=== PATIENT | male | born 1965 | race Caucasian/White ===

== ENCOUNTER 2020-07-02 09:16 | Emergency (ER) | payer OTHER ==
[2020-07-02] MEDS ORDERED: Sodium Chloride 0.9% 2.5 ML Syringe FLUSH PRN (09:19)
[2020-07-02] MEDS ORDERED: Sodium Chloride 0.9% 10 ML Syringe FLUSH PRN (09:19)
--- NOTE | 2020-07-02 09:21 | EDM.PDOC ---
ED HPI GENERAL MEDICAL PROBLEM - General Stated Complaint: CHEST PAIN Time Seen by Provider: 07/02/20 09:18 Source of Information: Reports: Patient, Old Records History Limitations: Reports: No Limitations - History of Present Illness INITIAL COMMENTS - FREE TEXT/NARRATIVE: This is a very pleasant 55-year-old man with a past medical history of coronary artery disease status post stenting, hypertension, hyperlipidemia, bipolar disorder presenting with chest pain. 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 No physical exertion before the onset. Describes left-sided chest pressure, nonradiating, nothing makes it better or worse. No history of prior pain like this. Pain has been constant. He took 2 doses of sublingual nitroglycerin and 81 mg of aspirin prior to arrival, pain decreased from 8 out of 10 to 1 out of 10. He does complain of some lingering mild chest discomfort at this time. He denies any shortness of breath. Does report nausea but no emesis, denies diaphoresis, denies any exertional chest discomfort. Denies fever, chills, cough, hemoptysis, leg swelling, history of venous thromboembolism, recent surgery or immobilization or long travel. Denies vomiting, diarrhea, or any other complaints. ROS: A 10-point review of systems was negative, except as noted in the HPI (or in the ROS section of this note). Past medical history: Reviewed, no additional pertinent history. Surgical history: Reviewed in system, no additional pertinent history. Social history: Reviewed in system, no additional pertinent history. Family history: Reviewed in system, no additional pertinent history. PHYSICAL EXAM Vital signs reviewed. Nursing notes reviewed. Constitutional: Awake, alert, non-distressed. Head: Normocephalic, atraumatic. Eyes: EOMI, conjunctiva normal, no discharge, no scleral icterus. Ears, Nose, Throat: External ears and nose normal, moist oral mucosa. Cardiovascular: 2+ radial pulses bilaterally, capillary refill less than 2 seconds. No lower extremity edema. Pulmonary: normal work of breathing, no accessory muscle use. Abdomen/GI: Soft, nontender, nondistended, no guarding or rigidity, no masses. Musculoskeletal: No deformities. Integumentary: Appropriate color for ethnicity, warm, dry, no pallor or jaundice, no rash. Neurologic: Alert, answering questions appropriately, normal speech, no facial droop, moving all extremities well. Psychiatric: Appropriate mood and affect, normal thought process. This patient was seen and evaluated during the 2019 SARS-CoV-2 novel coronavirus pandemic period. Community viral transmission is ongoing at time of this encounter and the emergency department is operating under pandemic response procedures. Chest Pain Score (Numeric/FACES): 2 - Related Data Allergies Allergy/AdvReac Type Severity Reaction Status Date / Time animal dander Allergy Sneezing Verified 07/02/20 09:31 Home Meds: Home Meds QUEtiapine [SEROquel] 50 mg PO DAILY 07/02/20 [History] Rosuvastatin [Crestor] 20 mg PO DAILY 07/02/20 [History] Telmisartan 40 mg PO DAILY 07/02/20 [History] Vortioxetine Hydrobromide [Trintellix] 20 mg PO DAILY 07/02/20 [History] amLODIPine [Norvasc] 5 mg PO DAILY 07/02/20 [History] lamoTRIgine 200 mg PO BID 07/02/20 [History] Past Medical History Psychiatric History: Reports: Bipolar, Depression - Past Surgical History Other Musculoskeletal Surgeries/Procedures:: hx bone spur removed from ankle Social & Family History - Family History Family Medical History: No Pertinent Family History ED ROS GENERAL - Review of Systems Review Of Systems: See Below ED EXAM, GENERAL - Physical Exam Exam: See Below #1 Interpretation EKG Interpretation Comments: 12-Lead ECG Interpretation Acquired: 9:21 AM Rhythm: Sinus bradycardia Rate: 55 bpm [place]: Normal Intervals: First-degree AV block Ectopy: None RV Strain: No obvious RV strain pattern. ST Segments/T-Waves: No notable changes Acute Ischemic Changes: None apparent Interpretation: No STEMI Course - Vital Signs Text/Narrative:: 55-year-old man presenting with several hours of left-sided chest pain and nausea. Patient hemodynamically stable, afebrile, well-appearing, looks nontoxic. Differential diagnosis includes but is not limited to: ACS, pulmonary embolism, aortic dissection, acute systolic heart failure, pneumonia, pneumothorax, pericardial effusion, pleural effusion, pericarditis, endocarditis, esophageal rupture, GERD, drug-induced chest pain, chest wall pain, and many others. 10:14 AM: Ordered full dose aspirin, labs, chest x-rays. Initial twelve-lead EKG looks nonischemic. We will plan for 3-hour delta troponin and ECG. Patient is resting comfortably at this time. 11:24 AM: Labs show mild normocytic anemia, normal white blood cell count and platelet count. D-dimer is elevated 0.74. Metabolic panel shows creatinine of 1.4 and BUN of 20, glucose 120 with normal carbon dioxide. Troponin is negative. Chest x-rays are clear. We will obtain a CT pulmonary angiogram. 2:35 PM: Troponin is negative x2. CT pulmonary angiogram shows no evidence of pulmonary embolism or abnormality. Chest x-rays are clear as well. Twelve-lead EKGs labs are reassuring. Showed no ischemic pattern or any evolving changes. Patient is low risk with a HEART score of 3. No evidence of pulmonary embolism. No signs of acute systolic heart failure, no pulmonary infiltrate on imaging studies to suggest pneumonia, no sign of pneumothorax or pericardial or pleural effusion. Low suspicion for pericarditis given lack of pain that is not worse when sitting forward, lack of fever, no clinical signs of endocarditis such as splinter hemorrhages or fever or history of IV drug use, no history of recent vomiting to suggest esophageal rupture. Low suspicion for aortic dissection given lack of pain rating to the back and equal radial pulses. At this point the work-up is essentially negative and the patient is stable to discharge home with outpatient cardiology or primary care follow-up in the next week. We discussed strict ED return precautions for worsening chest pain, shortness of breath, or any other new or concerning symptoms. Plan: Patient is stable to discharge home with outpatient primary care clinic follow-up. Strict emergency department return precautions were provided, patient indicated understanding. All questions were answered prior to departure. Discharged in good condition. HEART Score for Major Cardiac Events RESULT SUMMARY: 3 points Low Score (0-3 points) Risk of MACE of 0.9-1.7%. INPUTS: History > 0 = Slightly suspicious EKG > 0 = Normal Age > 1 = 45-64 Risk factors > 2 = ?3 risk factors or history of atherosclerotic disease Initial troponin > 0 = ?normal limit Last Recorded V/S: Last Vital Signs Temp 36.3 C 07/02/20 09:20 Pulse 58 L 07/02/20 12:39 Resp 16 07/02/20 12:39 BP 122/68 07/02/20 12:39 Pulse Ox 96 07/02/20 12:39 - Orders/Labs/Meds Orders: Active Orders 24 hr Category Date Time Status Cardiac Monitoring [RC] . DIRECTED Care 07/02/20 09:19 Active EKG 12 Lead [EKG Documentation Completion] [RC] STAT Care 07/02/20 13:56 Active EKG Documentation Completion [RC] STAT Care 07/02/20 09:19 Active Pulse Oximetry [RC] ASDIRECTED Care 07/02/20 09:19 Active Sodium Chloride 0.9% [Saline Flush] Med 07/02/20 09:19 Active 10 ml FLUSH ASDIRECTED PRN Sodium Chloride 0.9% [Saline Flush] Med 07/02/20 09:19 Active 2.5 ml FLUSH ASDIRECTED PRN Saline Lock Insert [OM.PC] Stat Oth 07/02/20 09:19 Ordered Medication Orders Sodium Chloride (Saline Flush) 10 ml FLUSH ASDIRECTED PRN PRN Reason: Keep Vein Open Last Admin: 07/02/20 10:04 Dose: 10 ml Documented by: GINA Sodium Chloride (Saline Flush) 2.5 ml FLUSH ASDIRECTED PRN PRN Reason: Keep Vein Open Last Admin: 07/02/20 10:04 Dose: 2.5 ml Documented by: GINA Labs: Laboratory Tests 07/02/20 07/02/20 07/02/20 Range/Units 09:25 09:25 09:25 WBC 8.96 (4.0-11.0) K/uL RBC 4.24 L (4.50-5.90) M/uL Hgb 12.6 L (13.0-17.0) g/dL Hct 38.6 (38.0-50.0) % MCV 91.0 (80.0-98.0) fL MCH 29.7 (27.0-32.0) pg MCHC 32.6 (31.0-37.0) g/dL RDW Std Deviation 43.2 (28.0-62.0) fl RDW Coeff of Pro 13 (11.0-15.0) % Plt Count 217 (150-400) K/uL MPV 10.00 (7.40-12.00) fL Neut % (Auto) 64.8 (48.0-80.0) % Lymph % (Auto) 20.1 (16.0-40.0) % Dickinson % (Auto) 10.9 (0.0-15.0) % Eos % (Auto) 3.9 (0.0-7.0) % Baso % (Auto) 0.3 (0.0-1.5) % Neut # (Auto) 5.8 H (1.4-5.7) K/uL Lymph # (Auto) 1.8 (0.6-2.4) K/uL Dickinson # (Auto) 1.0 H (0.0-0.8) K/uL Eos # (Auto) 0.4 (0.0-0.7) K/uL Baso # (Auto) 0.0 (0.0-0.1) K/uL Nucleated RBC % 0.0 /100WBC Nucleated RBCs # 0 K/uL D-Dimer, Quantitative 0.74 H (0.0-0.50) mg/L FEU Sodium 140 (136-148) mmol/L Potassium 3.7 (3.5-5.1) mmol/L Chloride 105 (98-107) mmol/L Carbon Dioxide 23.0 (21.0-32.0) mmol/L BUN 20 H (7.0-18.0) mg/dL Creatinine 1.4 H (0.8-1.3) mg/dL Est Cr Clr Drug Dosing 63.90 mL/min Estimated GFR (MDRD) 52.2 ml/min Glucose 120 H (74-106) mg/dL Calcium 8.6 (8.5-10.1) mg/dL Total Bilirubin 0.2 (0.2-1.0) mg/dL AST 17 (15-37) IU/L ALT 22 (14-63) IU/L Alkaline Phosphatase 101 (46-116) U/L Troponin I < 0.050 (0.000-0.056) ng/mL Total Protein 6.5 (6.4-8.2) g/dL Albumin 3.4 (3.4-5.0) g/dL Globulin 3.1 (2.6-4.0) g/dL Albumin/Globulin Ratio 1.1 (0.9-1.6) 07/02/20 Range/Units 12:34 WBC (4.0-11.0) K/uL RBC (4.50-5.90) M/uL Hgb (13.0-17.0) g/dL Hct (38.0-50.0) % MCV (80.0-98.0) fL MCH (27.0-32.0) pg MCHC (31.0-37.0) g/dL RDW Std Deviation (28.0-62.0) fl RDW Coeff of Pro (11.0-15.0) % Plt Count (150-400) K/uL MPV (7.40-12.00) fL Neut % (Auto) (48.0-80.0) % Lymph % (Auto) (16.0-40.0) % Dickinson % (Auto) (0.0-15.0) % Eos % (Auto) (0.0-7.0) % Baso % (Auto) (0.0-1.5) % Neut # (Auto) (1.4-5.7) K/uL Lymph # (Auto) (0.6-2.4) K/uL Dickinson # (Auto) (0.0-0.8) K/uL Eos # (Auto) (0.0-0.7) K/uL Baso # (Auto) (0.0-0.1) K/uL Nucleated RBC % /100WBC Nucleated RBCs # K/uL D-Dimer, Quantitative (0.0-0.50) mg/L FEU Sodium (136-148) mmol/L Potassium (3.5-5.1) mmol/L Chloride (98-107) mmol/L Carbon Dioxide (21.0-32.0) mmol/L BUN (7.0-18.0) mg/dL Creatinine (0.8-1.3) mg/dL Est Cr Clr Drug Dosing mL/min Estimated GFR (MDRD) ml/min Glucose (74-106) mg/dL Calcium (8.5-10.1) mg/dL Total Bilirubin (0.2-1.0) mg/dL AST (15-37) IU/L ALT (14-63) IU/L Alkaline Phosphatase (46-116) U/L Troponin I < 0.050 (0.000-0.056) ng/mL Total Protein (6.4-8.2) g/dL Albumin (3.4-5.0) g/dL Globulin (2.6-4.0) g/dL Albumin/Globulin Ratio (0.9-1.6) Meds: Medications Generic Name Dose Route Start Last Admin Trade Name Freq PRN Reason Stop Dose Admin Sodium Chloride 10 ml 07/02/20 09:19 07/02/20 10:04 Saline Flush FLUSH 10 ml ASDIRECTED PRN Administration Keep Vein Open Sodium Chloride 2.5 ml 07/02/20 09:19 07/02/20 10:04 Saline Flush FLUSH 2.5 ml ASDIRECTED PRN Administration Keep Vein Open Discontinued Medications Generic Name Dose Route Start Last Admin Trade Name Freq PRN Reason Stop Dose Admin Aspirin 324 mg 07/02/20 10:04 07/02/20 10:10 Aspirin PO 07/02/20 10:05 324 mg ONETIME ONE Administration Lactated Ringer's 1,000 mls @ 999 mls/hr 07/02/20 10:27 07/02/20 11:32 Ringers, Lactated IV 07/02/20 11:27 999 mls/hr .BOLUS ONE Administration Departure - Departure Time of Disposition: 14:38 Disposition: Home, Self-Care 01 Condition: Good Clinical Impression: Atypical chest pain Instructions: Nonspecific Chest Pain, Adult Referrals: Sebastian Li MD [Primary Care Provider] - 1 Week (For follow-up of chest pain.) Additional Instructions: You were seen in the emergency department for chest pain. At this point your blood work, x-rays, CT scan, and ECGs all look reassuring. There is no sign of an active heart attack from what we can tell and also no sign of a blood clot in your lungs, pneumonia, or any other dangerous or life-threatening condition to cause your chest pain. I do want for you to follow-up with your primary doctor in the next week or so for reevaluation and to be sure that you are doing better. In the meantime, continue taking your prescribed medications as directed. Warning signs to come back to the ER include: Worsening chest pain, shortness of breath, or any other new or concerning symptoms. Please return the emergency department immediately if your symptoms worsen or if you feel worse. Thank you for choosing the [facility] emergency department in [place] for your medical needs today. It was a pleasure caring for you. The following information is given to patients seen in the emergency department who are being discharged. This information is to outline your options for follow-up care. We provide all patients seen in our emergency department with a follow-up referral. The need for follow-up, as well as the timing and circumstances, are variable depending upon the specifics of your emergency department visit. If you don't have a primary care physician on staff, we will provide you with a referral. We always advise you to contact your personal physician following an emergency department visit to inform them of the circumstance of the visit and for follow-up with them and/or the need for any referrals to a consulting specialist. The emergency department will also refer you to a specialist when appropriate. This referral assures that you have the opportunity for follow-up care with a specialist. All of these measure are taken in an effort to provide you with optimal care, which includes your follow-up. Under all circumstances we always encourage you to contact your private physician who remains a resource for coordinating your care. When calling for follow-up care, please make the office aware that this follow-up is from your recent emergency room visit. If for any reason you are refused follow-up, please contact the [facility] Emergency Department at and asked to speak to the emergency department charge nurse. If you do not have a primary care physician that is caring for you, you can contact these clinics below to set up an appointment to establish care: [facility] - Primary [facility] [address] [place] [id number] [address] [place] [address] Sepsis Event Note (ED) - Focused Exam Vital Signs: Vital Signs Temp Pulse Resp BP Pulse Ox 07/02/20 12:39 58 L 16 122/68 96 07/02/20 11:21 63 18 113/71 98 07/02/20 10:36 56 L 16 114/67 95 07/02/20 09:20 36.3 C 67 17 112/64 97 - My Orders Last 24 Hours: My Active Orders 07/02/20 09:19 Cardiac Monitoring [RC] . DIRECTED EKG Documentation Completion [RC] STAT Pulse Oximetry [RC] ASDIRECTED Sodium Chloride 0.9% [Saline Flush] 10 ml FLUSH ASDIRECTED PRN Sodium Chloride 0.9% [Saline Flush] 2.5 ml FLUSH ASDIRECTED PRN Saline Lock Insert [OM.PC] Stat 07/02/20 13:56 EKG 12 Lead [EKG Documentation Completion] [RC] STAT - Assessment/Plan Last 24 Hours: My Active Orders 07/02/20 09:19 Cardiac Monitoring [RC] . DIRECTED EKG Documentation Completion [RC] STAT Pulse Oximetry [RC] ASDIRECTED Sodium Chloride 0.9% [Saline Flush] 10 ml FLUSH ASDIRECTED PRN Sodium Chloride 0.9% [Saline Flush] 2.5 ml FLUSH ASDIRECTED PRN Saline Lock Insert [OM.PC] Stat 07/02/20 13:56 EKG 12 Lead [EKG Documentation Completion] [RC] STAT
[2020-07-02] MEDS ORDERED: Aspirin 81 MG Tab.Chew PO ONE (10:04)
--- NOTE | 2020-07-02 10:08 | CR ---
Indication: Chest pain Comparison: Two-view chest January 22, 2016 Technique: PA and Lateral views chest Findings: There is no focal consolidation, effusion, or pneumothorax. The cardiac silhouette is mildly prominent. The bony thorax is grossly intact. Impression: No acute cardiopulmonary abnormality. Dictated by Jw Anderson MD @ Jul 02 2020 10:06AM Signed by Dr. Jw Anderson @ Jul 02 2020 10:06AM
[2020-07-02 10:10] LABS: BLOOD UREA NITROGEN,BUN 20 mg/dL (7.0-18.0); CHLORIDE,CL 105 mmol/L (98-107); GLUCOSE RANDOM 120 mg/dL (74-106); POTASSIUM,K 3.7 mmol/L (3.5-5.1); SODIUM,NA 140 mmol/L (136-148)
[2020-07-02] MEDS ORDERED: Lactated Ringers 1,000 ML IV ONE (10:27)
--- NOTE | 2020-07-02 13:52 | CT ---
Indication: Chest pain Technique: Volumetric multidetector CT images of the chest were obtained after the administration of IV contrast. 70 cc Isovue 370 Comparison: None available. Findings: The thoracic inlet and thyroid gland are unremarkable. The thoracic aorta is nonaneurysmal. There is no central filling defect to suggest pulmonary embolism. There is no mediastinal, hilar or axillary adenopathy. The trachea and bronchi are well aerated without significant bronchiectasis. There is dependent bibasilar atelectasis versus scar without evidence of dense consolidation, effusion, or pneumothorax. There is no evidence of pulmonary mass or suspicious pulmonary nodule. The partially visualized upper abdominal viscera are within normal limits. The thoracic vertebral body heights are grossly maintained with mild multi-level degenerative disc disease. There is mild spondylolisthesis. Impression: No evidence of pulmonary embolism. Mild dependent basilar atelectasis, otherwise no acute cardiopulmonary abnormality is appreciated. Please note that all CT scans at this facility use dose modulation, iterative reconstruction, and/or weight-based dosing when appropriate to reduce radiation dose to as low as reasonably achievable. Dictated by Jw Anderson MD @ Jul 02 2020 1:41PM Signed by Dr. Jw Anderson @ Jul 02 2020 1:51PM
[2020-07-02 15:07] VITALS: BP 115/70; PULSE 56
== END 2020-07-02 15:00 | disposition home or self-care (01) ==
LOC: MW.ED 09:16
DX: R07.89 Other chest pain (principal); I25.10 Atherosclerotic heart disease of native coronary artery without angina pectoris; I10 Essential (primary) hypertension; E78.5 Hyperlipidemia, unspecified; F31.9 Bipolar disorder, unspecified; Z79.899 Other long term (current) drug therapy; Z95.5 Presence of coronary angioplasty implant and graft
CPT/HCPCS: 36415; 71046; 71275; 80053; 84484; 85025; 85379; 93005; 99285; A9270; J7120; 93010

== ENCOUNTER 2021-08-29 22:42 | Emergency (ER) | payer OTHER ==
[2021-08-29] MEDS ORDERED: Nitroglycerin 0.4 MG Tab.SL SL PRN (22:59)
[2021-08-29] MEDS ORDERED: Aspirin 81 MG Tab.Chew PO ONE (22:59)
[2021-08-29 23:37] LABS: BLOOD UREA NITROGEN,BUN 27 mg/dL (7.0-18.0); CARBON DIOXIDE,CO2 23.9 mmol/L (21.0-32.0); CHLORIDE,CL 104 mmol/L (98-107); GLUCOSE RANDOM 110 mg/dL (74-106); POTASSIUM,K 3.6 mmol/L (3.5-5.1); SODIUM,NA 139 mmol/L (136-148)
[2021-08-30 03:00] VITALS: BP 118/70; PULSE 52
== END 2021-08-30 03:04 | disposition home or self-care (01) ==
LOC: MW.ED 22:42
DX: R07.2 Precordial pain (principal); I25.10 Atherosclerotic heart disease of native coronary artery without angina pectoris; E78.00 Pure hypercholesterolemia, unspecified; I10 Essential (primary) hypertension; E66.9 Obesity, unspecified; Z68.35 Body mass index [BMI] 35.0-35.9, adult; Z91.09 Other allergy status, other than to drugs and biological substances; Z79.899 Other long term (current) drug therapy; Z95.5 Presence of coronary angioplasty implant and graft
CPT/HCPCS: 36415; 71045; 80053; 84484; 85025; 93005; 99285; A9270

== ENCOUNTER 2022-01-03 19:54 | Emergency (ER) | payer OTHER ==
[2022-01-03 23:09] VITALS: BP 128/83; PULSE 58
== END 2022-01-03 23:09 | disposition home or self-care (01) ==
LOC: MW.ED 19:54
DX: S90.32XA Contusion of left foot, initial encounter (principal); E78.00 Pure hypercholesterolemia, unspecified; I10 Essential (primary) hypertension; Z95.5 Presence of coronary angioplasty implant and graft; Z91.09 Other allergy status, other than to drugs and biological substances; Z79.899 Other long term (current) drug therapy
CPT/HCPCS: 73620-26-LT; 73620-LT; 99282; 99283-25

== ENCOUNTER 2022-03-22 16:03 | Emergency (ER) | payer OTHER ==
[2022-03-22 19:16] VITALS: BP 132/78; PULSE 78
== END 2022-03-22 18:45 | disposition home or self-care (01) ==
LOC: MW.ED 16:03
DX: U07.1 COVID-19 (principal); I10 Essential (primary) hypertension; E78.00 Pure hypercholesterolemia, unspecified; Z79.899 Other long term (current) drug therapy
CPT/HCPCS: 99282; 99283; U0002

== ENCOUNTER 2022-10-04 01:32 | Emergency (ER) | payer OTHER ==
[2022-10-04] MEDS ORDERED: Acetaminophen 325 MG Tab PO ONE (01:45)
[2022-10-04 02:16] LABS: CARBON DIOXIDE,CO2 25.7 mmol/L (21.0-32.0); POTASSIUM,K 3.2 mmol/L (3.5-5.1)
[2022-10-04 04:19] VITALS: BP 107/64; PULSE 68
== END 2022-10-04 04:25 | disposition home or self-care (01) ==
LOC: MW.ED 01:32
DX: R07.89 Other chest pain (principal); I10 Essential (primary) hypertension; Z91.09 Other allergy status, other than to drugs and biological substances
CPT/HCPCS: 36415; 71045; 80048; 84484; 85025; 93005; 99285; A9270

== ENCOUNTER 2023-12-16 | Emergency (ER) | payer OTHER ==
[2023-12-16 00:27] LABS: BASOPHILS ABSOLUTE AUTO 0.02 K/uL (0.00-0.20); BASOPHILS PERCENT AUTO 0.2 % (0.0-1.0); EOSINOPHILS ABSOLUTE AUTO 0.01 K/uL (0.00-0.45); EOSINOPHILS PERCENT AUTO 0.1 % (0.0-6.0); HEMATOCRIT 40.5 % (42.0-52.0); HEMOGLOBIN 14.2 g/dL (14.0-18.0); IMMATURE GRAN ABSOLUTE AUTO 0.04 K/uL (0.00-0.05); IMMATURE GRAN PERCENT AUTO 0.4 % (0.0-0.4); LYMPHOCYTES ABSOLUTE AUTO 0.89 K/uL (1.00-4.80); LYMPHOCYTES PERCENT AUTO 9.5 % (24.0-44.0); MEAN CORPUSCULAR HEMOGLOBIN 31.2 pg (28.0-32.0); MEAN CORPUSCULAR HGB CONC 35.1 g/dL (32.0-36.0); MEAN PLATELET VOLUME 9.9 fL (9.4-12.4); MONOCYTES ABSOLUTE AUTO 0.47 K/uL (0.00-0.80); NEUTROPHILS ABSOLUTE AUTO 7.89 K/uL (1.80-7.70); NEUTROPHILS PERCENT AUTO 84.8 % (41.0-71.0); PLATELET COUNT,PLT 231 K/uL (150-400); RED BLOOD CELL COUNT 4.55 M/uL (4.52-5.90); WHITE BLOOD CELL COUNT,WBC 9.32 K/uL (3.9-11.3)
[2023-12-16] MEDS: Ondansetron 4 MG/2 ML SDV IVPUSH ONE (00:44)
[2023-12-16] MEDS: Lactated Ringers 1,000 ML IV ONE (00:44)
[2023-12-16] MEDS: Acetaminophen 500 MG Tab PO ONE (00:44)
[2023-12-16] MEDS: Sodium Chloride 0.9% 10 ML Syringe FLUSH PRN (00:44)
[2023-12-16] MEDS: Sodium Chloride 0.9% 2.5 ML Syringe FLUSH PRN (00:45)
[2023-12-16 00:47] LABS: A/G RATIO 0.9 (0.9-1.6); ALBUMIN 3.6 g/dL (3.4-5.0); BILIRUBIN TOTAL 0.5 mg/dL (0.2-1.0); CALCIUM 8.8 mg/dL (8.5-10.1); CARBON DIOXIDE,CO2 24.5 mmol/L (21.0-32.0); CREATININE 1.4 mg/dL (0.8-1.3); EST CRCL DRUG DOSING (CG) 65.24 mL/min; MAGNESIUM 1.9 mg/dL (1.8-2.4); POTASSIUM,K 4.2 mmol/L (3.5-5.1); PROTEIN TOTAL,TP 7.6 g/dL (6.4-8.2); TSH ULTRASENSITIVE 0.45 uIU/mL (0.36-3.74)
[2023-12-16 03:31] VITALS: BP 114/62; PULSE 68
== END 2023-12-16 03:33 | disposition home or self-care (01) ==
LOC: MW.ED
DX: R00.0 Tachycardia, unspecified (principal); R00.2 Palpitations; I10 Essential (primary) hypertension; E78.00 Pure hypercholesterolemia, unspecified; Z91.048 Other nonmedicinal substance allergy status; Z79.899 Other long term (current) drug therapy
CPT/HCPCS: 36415; 80053; 83735; 83880; 84443; 84484; 85025; 85379; 93005; 96374; 99285; J2405; J3490; J7120; 93010; 99284

== ENCOUNTER 2024-07-28 10:02 | Emergency (ER) | payer OTHER ==
[2024-07-28] MEDS ORDERED: Sodium Chloride 0.9% 10 ML Syringe FLUSH PRN (10:18)
[2024-07-28] MEDS ORDERED: Sodium Chloride 0.9% 2.5 ML Syringe FLUSH PRN (10:18)
[2024-07-28 10:42] LABS: HEMATOCRIT 40.3 % (42.0-52.0); HEMOGLOBIN 13.5 g/dL (14.0-18.0); MEAN CORPUSCULAR HEMOGLOBIN 29.9 pg (28.0-32.0); MEAN CORPUSCULAR HGB CONC 33.5 g/dL (32.0-36.0); MEAN CORPUSCULAR VOLUME 89.2 fL (83.0-99.0); PLATELET COUNT,PLT 178 K/uL (150-400); RED BLOOD CELL COUNT 4.52 M/uL (4.52-5.90); WHITE BLOOD CELL COUNT,WBC 12.56 K/uL (3.9-11.3)
[2024-07-28] MEDS: Morphine 4 MG/ML Syringe IVPUSH STA ×2 (10:43→15:03)
[2024-07-28] MEDS: Ondansetron 4 MG/2 ML SDV IVPUSH STA (10:43)
[2024-07-28 11:19] LABS: A/G RATIO 0.8 (0.9-1.6); ALBUMIN 3.3 g/dL (3.4-5.0); BILIRUBIN TOTAL 0.7 mg/dL (0.2-1.0); CARBON DIOXIDE,CO2 25.7 mmol/L (21.0-32.0); CREATININE 1.6 mg/dL (0.8-1.3); EST CRCL DRUG DOSING (CG) 57.95 mL/min; MAGNESIUM 2.2 mg/dL (1.8-2.4); POTASSIUM,K 4.4 mmol/L (3.5-5.1); PROTEIN TOTAL,TP 7.3 g/dL (6.4-8.2)
[2024-07-28 11:47] LABS: LYMPHOCYTES ABSOLUTE MAN 1.63 K/uL (1.00-4.80); LYMPHOCYTES PERCENT MAN 13 % (24-44); MONOCYTES ABSOLUTE MAN 1.38 K/uL (0.00-0.80); MONOCYTES PERCENT MAN 11 % (0-8); SEG NEUTROPHILS ABSOLUTE MAN 9.55 K/uL (1.80-7.70); SEG NEUTROPHILS PERCENT MAN 76 % (41-71)
[2024-07-28] MEDS: Iopamidol 755 Mg/ML 100 ML Bottle IVPUSH ONE (12:35)
[2024-07-28] MEDS ORDERED: Heparin Sodium 5,000 Units/ML Vial IVPUSH ONE (12:52)
[2024-07-28] MEDS: Heparin Sodium 5,000 Units/ML Vial IVPUSH ONE (13:11)
[2024-07-28] MEDS: Heparin Sodium/0.45% NaCl 25,000 UNITS/250 ML BAG IV SCH (13:17)
[2024-07-28] MEDS: Sodium Chloride 0.9% 500 ML IV STA (13:47)
[2024-07-28 14:49] VITALS: PULSE 80
[2024-07-28 14:53] VITALS: BP 108/62
== END 2024-07-28 15:24 ==
LOC: MW.ED 10:02
DX: I26.92 Saddle embolus of pulmonary artery without acute cor pulmonale (principal); Z98.890 Other specified postprocedural states; Z75.8 Other problems related to medical facilities and other health care; I10 Essential (primary) hypertension; E78.00 Pure hypercholesterolemia, unspecified; Z79.899 Other long term (current) drug therapy; Z91.048 Other nonmedicinal substance allergy status
CPT/HCPCS: 36415; 71045; 71275; 74177; 80053; 83690; 83735; 83880; 84484; 85025; 85730; 93005; 96365; 96366; 96375; 96376; 99285; J1644; J2270; J2405; J7040; Q9967

== ENCOUNTER 2024-12-06 09:07 | Emergency (ER) | payer OTHER ==
[2024-12-06] MEDS ORDERED: Sodium Chloride 0.9% 2.5 ML Syringe FLUSH PRN (09:23)
[2024-12-06] MEDS ORDERED: Sodium Chloride 0.9% 10 ML Syringe FLUSH PRN (09:23)
[2024-12-06 09:43] LABS: BASOPHILS ABSOLUTE AUTO 0.03 K/uL (0.00-0.20); BASOPHILS PERCENT AUTO 0.4 % (0.0-1.0); EOSINOPHILS ABSOLUTE AUTO 0.19 K/uL (0.00-0.45); EOSINOPHILS PERCENT AUTO 2.3 % (0.0-6.0); HEMATOCRIT 43.4 % (42.0-52.0); HEMOGLOBIN 14.3 g/dL (14.0-18.0); IMMATURE GRAN ABSOLUTE AUTO 0.02 K/uL (0.00-0.05); IMMATURE GRAN PERCENT AUTO 0.2 % (0.0-0.4); LYMPHOCYTES ABSOLUTE AUTO 1.46 K/uL (1.00-4.80); LYMPHOCYTES PERCENT AUTO 17.5 % (24.0-44.0); MEAN CORPUSCULAR HEMOGLOBIN 29.8 pg (28.0-32.0); MEAN CORPUSCULAR HGB CONC 32.9 g/dL (32.0-36.0); MEAN CORPUSCULAR VOLUME 90.4 fL (83.0-99.0); MEAN PLATELET VOLUME 10.2 fL (9.4-12.4); MONOCYTES PERCENT AUTO 9.6 % (0.0-8.0); NEUTROPHILS ABSOLUTE AUTO 5.85 K/uL (1.80-7.70); PLATELET COUNT,PLT 205 K/uL (150-400); WHITE BLOOD CELL COUNT,WBC 8.35 K/uL (3.9-11.3)
[2024-12-06 10:08] LABS: CALCIUM 9.2 mg/dL (8.5-10.1); CARBON DIOXIDE,CO2 29.2 mmol/L (21.0-32.0); CREATININE 1.4 mg/dL (0.8-1.3); EST CRCL DRUG DOSING (CG) 60.82 mL/min; MAGNESIUM 2.1 mg/dL (1.8-2.4); POTASSIUM,K 3.8 mmol/L (3.5-5.1)
[2024-12-06] MEDS: Sodium Chloride 0.9% 1,000 ML IV SCH (10:30)
[2024-12-06 12:49] VITALS: BP 115/73; PULSE 57
== END 2024-12-06 13:00 | disposition home or self-care (01) ==
LOC: MW.ED 09:07
DX: R00.2 Palpitations (principal); E78.00 Pure hypercholesterolemia, unspecified; I10 Essential (primary) hypertension; Z95.5 Presence of coronary angioplasty implant and graft; Z91.048 Other nonmedicinal substance allergy status; Z79.899 Other long term (current) drug therapy
CPT/HCPCS: 36415; 80048; 83735; 84484; 85025; 85379; 99285; J7030; 99284